=== PATIENT | male | born 1960 | race Caucasian/White ===

== ENCOUNTER 2017-10-30 10:50 | Day surgery (SDC) | payer OTHER, SELFPAY ==
[2017-10-30] VITALS (7 sets, daily range): BP systolic 126–153; BP diastolic 69–88; PULSE 74–90; RESP 12–18; TEMP 36.2–37.3; O2SAT 97–100; BMI 24.3
--- NOTE | 2017-10-30 11:01 | EKG12_ITS ---
Test Reason : PREOP Blood Pressure : / mmHG Vent. Rate : 070 BPM Atrial Rate : 070 BPM P-R Int : 138 ms QRS Dur : 098 ms QT Int : 374 ms P-R-T Axes : 078 039 037 degrees QTc Int : 403 ms Normal sinus rhythm Normal ECG Confirmed by NNAMDI PERES, CRISTIAN ([id number]), online editor GERARDO GODOY ([id number]) on 11/05/2017 2:54:18 PM Referred By: Reagan Bauman Confirmed By:CRISTIAN COTO MD
--- NOTE | 2017-10-30 12:30 | HERN_PTH ---
PATIENT: SHELDON QUINTERO LOC: [facility] [place] U#:[id number] AGE/SX: 57/M ROOM: RE10/30/[address]: Dr. Reagan Bauman MD : 1960 BED: DIS: 10/30/2017 SPEC #: [id number] RECD: 10/31/17 09:23 STATUS: IVÁN JOSSIE #: [id number] IRMA: 10/30/17 12:[address]: Reagan Bauman DEPT: SURGICAL PATHOLOGY RECD BY: Fifi Govea ENTERED: 10/31/17 11:12 SP TYPE: Hernia OTHR DR: No Primary Care Phys Tissues: LIPOMA OF CORD Procedures: Surgery Specimen Level III HEADER OPERATION: Laparoscopic assisted robotic inguinal hernia repair with mesh PRE-OP DIAGNOSIS: Right inguinal hernia TISSUE SUBMITTED: Lipoma of right cord MICROSCOPIC DIAGNOSIS Lipoma of cord: Mature adipose tissue, consistent with lipoma. SJ:lydia 2/5/18 MICROSCOPIC DESCRIPTION Slides are reviewed. GROSS DESCRIPTION Received in fixative is one container labeled with the patient's name and designated lipoma of right cord. The specimen consists of an irregular piece of yellow adipose tissue measuring 5 x 3 x 0.5 cm. Sections reveal yellow adipose cut surfaces without areas of hemorrhage or cystic degeneration. Lead Principal Technical Architect sections are submitted in one cassette. / SJ:rg 10/31/17 TC:1 CPT: 33913
[2017-10-30] MEDS: Cefazolin 2 GM in 0.9% Normal Saline 100 ML IV (12:42)
[2017-10-30] MEDS: Bupivacaine Mpf 0.5% 30 ML VIAL (14:30)
--- NOTE | 2017-10-30 14:39 | PCM.DC.HER ---
Discharge Diet: Light diet - advance as tolerated Discharge Activity: Return to Normal Activity, May Not Drive - for 2-3 days or while taking narcotic pain meds., May Shower - with the bandage in place 1-2 days after surgery. Lifting Restrictions: 20 pounds for 4 weeks. Additional Activity Instructions:: Climbing stairs is fine, walking is encouraged. Sitting in bed may be uncomfortable. Sitting up using your lateral muscles (sitting up sideways) is usually more comfortable. Do not drive, work heavy equipment of sign legal documents for 24 hours. If your hernia repair was an ingunial repair, you may have scrotal swelling, an ice pack and/or athletic support can provide more comfort. Pain medications may cause nausea, you should typically eat light foods as you take your pain medications. Pain medications may also cause constipation. If you have difficulty with this, discuss with your doctor. Call your doctor if your incision/area has: Continuous Slow Oozing, Sudden Increased Bleeding, Increased Pain/ Swelling, Increased Redness, Foul Smelling Discharge Call your doctor if you observe: Fever of 101 or Higher Suture Line Care: Avoid Pulling/Pushing, Avoid Pinching/Bending Change Dressing in (Days):: 2 - Leave steri-strips for 1 week. May protect with a guaze bandaid. Cleanse incision/area with: Keep Dressing Clean & Dry Allergies/Adverse Reactions: Allergies No Known Allergies Allergy (Verified 10/29/17 10:21) Medications to take at Discharge multivitamin capsule 1 cap PO QDAY 10/16/17 Oxycodone HCl/Acetaminophen [Percocet 5/325] 1 - 2 tablet PO Q4H PRN PRN 7 Days #30 tablet 10/30/17 The following prescriptions were given: Oxycodone HCl/Acetaminophen [Percocet 5/325] 1 - 2 tablet PO Q4H PRN PRN 7 Days #30 tablet PRN Reason: Pain Primary Care Physician: Care Physician,No Primary [Primary Care Provider] - Please Follow Up With: Reagan Bauman MD When: call tomorrow to make 2 week follow up appt [phone]
--- NOTE | 2017-10-30 14:41 | PCM.OPRPT ---
Problem List (1) Right inguinal hernia Status: Acute Report of Operation Date of Procedure: 10/30/17 Pre-Operative Diagnosis: Right inguinal hernia Post-Operative Diagnosis: Same Surgery/Procedure Performed:: Robotic assisted laparoscopic right inguinal hernia repair with mesh Description of Surgical Findings:: Patient actually has bilateral inguinal hernias but I only elected to fix the right side as he is Worker's Comp. and the other side would likely be uncovered. This was discussed prior to surgery with the patient. Specimen's removed: Lipoma of the right cord Description of Procedure: The patient was brought back to the operating room and general anesthesia was induced. A Peña catheter was placed and clear urine was returned. Next the abdomen was prepped and draped in usual sterile fashion. An incision was made superior to the umbilicus and deepened to the fascia. The fascia was elevated and a Veress needle was placed into the abdomen and a drop test was performed and was normal. Next the abdomen was insufflated to 15 mmHg. The Veress needle was then removed and the camera port was placed in the abdomen. The camera was then placed in the abdomen and inspected for any injuries upon entry. Next attention was paid to the inguinal area and there were bilateral inguinal hernias but I elected to only fix the right side as the patient is here with a Worker's Comp. case and I discussed this with the patient before that the other side would likely be uncovered and he would have to return no later date but he is currently asymptomatic on that side. Next two 8 mm trochars were placed in the abdominal sidewalls. Next the robot was docked and the patient was placed in steep Trendelenburg position. Next using electrocautery scissors the peritoneum was incised and dissected downward until the hernia sac was reached. The hernia sac was then circumferentially dissected free. There was a large peritoneal fold entering the hernia which may have been a bladder diverticulum. I was unable to get the distal hernia sac free as it went all the way into the scrotum. I elected to divide the hernia sac and reduced what I could. The patient also had a large lipoma of the right cord which was dissected free and removed from the body. Next the large peritoneal fold and what I had of the inguinal hernia sac was brought into the abdomen and a piece of pro-farm equipment mechanic apprentice mesh was trimmed and placed over the defect and placed into position. Next the peritoneum was reapproximated with a running 3-0V lock suture. The defect where the hernia sac was was also closed with a running 3-0V lock suture. At the end of this the mesh was covered well with peritoneum. Next the robot was undocked and the patient was placed in level position. The lateral ports were removed under direct visualization and there was good hemostasis. Next the air was allowed to leave the body and the camera port was removed. All the incisions were closed with interrupted 4-0 Monocryl sutures, Steri-Strips, and bandages. They were all anesthetized with Marcaine. The Peña was removed at the end of the case and the scrotum was checked to include both testicles. The patient was brought to PACU in stable condition. Grafts/Implants Used: Pro-farm equipment mechanic apprentice mesh - Admit VTE Documentation VTE Mechan Device Prophylaxis: SCD's
== END 2017-10-30 19:27 | disposition home or self-care (01) ==
LOC: SDC 10:51 → AC 10:53
PROVIDERS: Visit Provider Surgery
PROC: (CPT 49650; principal; 2017-10-30 12:10)
DX: K40.20 Bilateral inguinal hernia, without obstruction or gangrene, not specified as recurrent (principal); D17.6 Benign lipomatous neoplasm of spermatic cord; Z87.891 Personal history of nicotine dependence
CPT/HCPCS: 00840; 49650; 88304; 93005; J7120; J2405; J3490

== ENCOUNTER → 2017-11-28 11:46 | Outpatient (CLI) | payer BC, OTHER, SELFPAY ==
[2017-11-28 14:20] LABS: Absolute Lymphocyte Count 1.69 X10^3/ul (0.83-4.51); Absolute Neutrophil Count 5.8 X10^3/uL (2.0-7.7); Basophil# 0.04 X10^3/uL; Basophil% 0.5 % (0-1); Eosinophil# 0.21 X10^3/uL; Eosinophils% 2.5 % (0-5); Hematocrit 43.9 % (40-54); Lymphocyte # 1.69 X10^3/ul (4.0); Lymphocyte % 20.4 % (19-41); Mean Corp Hgb Conc 34.2 g/gl (32-36); Mean Corpuscular Hgb 30.1 pg (27.0-32.0); Mean Platelet Vol. 9.9 fl (6.2-12.0); Monocyte# 0.54 X10^3/uL; Monocyte% 6.5 % (0-10); Neutrophil # 5.78 X10^3/uL (2.7-7.7); Platelet Count 262 K/mm3 (150-450); RBC Distribution Width CV 13.1 % (11.6-14.6); RBC Distribution Width SD 41.8 fl (35.1-43.9); Red Blood Count 4.99 M/mm3 (4.6-6.2); White Blood Count 8.3 K/mm3 (4.4-11.0)
[2017-11-28 14:24] LABS: POSITIVE COUNT NO; POSITIVE DIFFERENTIAL NO; POSITIVE MORPHOLOGY NO
[2017-11-28 14:40] LABS: Anion Gap 6 (5-15); BUN 13 mg/dL (7-18); BUN/Creat Ratio 17.4 RATIO (10-20); Chloride 105 mmol/L (98-107); Cholesterol 162 mg/dL (200); Creatinine, Serum 0.74 mg/dL (0.70-1.30); EST Glomerular Filtration Rate 115 mL/min (>60); Est Glom Filt Rate - Afr Amer 139 mL/min (>60); Glucose 89 mg/dL (74-106); High Density Lipoprotein 65 mg/dL; PSA,Total - Annual Screen 5.21 ng/mL (0.00-4.00); Potassium 4.2 mmol/L (3.5-5.1); Sodium Level 140 mmol/L (136-145); Thyroid Stim Hormone (TSH) 1.43 uIU/mL (0.358-3.74); Triglycerides 63 mg/dL; Very Low Density Lipoprotein 13 mg/dL (5-40)
== END ==
PROVIDERS: Family Provider Family Medicine; PCP Family Medicine; Visit Provider Family Medicine
DX: Z00.00 Encounter for general adult medical examination without abnormal findings (principal)
CPT/HCPCS: 36415; 80048; 80061; 84153; 84443; 85025; G0103

== ENCOUNTER → 2018-03-17 16:13 | Outpatient (CLI) | payer OTHER, BC, SELFPAY ==
[2018-03-17 18:08] LABS: PSA,Total- Diagnostic 4.78 ng/mL (0.0-4.0)
== END ==
PROVIDERS: Family Provider Family Medicine; PCP Family Medicine; Visit Provider Family Medicine
DX: R97.20 Elevated prostate specific antigen [PSA] (principal)
CPT/HCPCS: 36415; 84153

== ENCOUNTER → 2018-08-06 16:27 | Outpatient (CLI) | payer BC, OTHER, SELFPAY ==
[2018-08-06 17:48] LABS: Anion Gap 6 (5-15); BUN 14 mg/dL (7-18); BUN/Creat Ratio 16.4 RATIO (10-20); Calcium,Total 8.8 mg/dL (8.5-10.1); Chloride 103 mmol/L (98-107); Creatinine, Serum 0.86 mg/dL (0.70-1.30); EST Glomerular Filtration Rate 98 mL/min (>60); Est Glom Filt Rate - Afr Amer 118 mL/min (>60); Glucose 87 mg/dL (74-106); PSA,Total- Diagnostic 5.89 ng/mL (0.0-4.0); Potassium 4.2 mmol/L (3.5-5.1); Sodium Level 139 mmol/L (136-145)
== END ==
PROVIDERS: Family Provider Family Medicine; PCP Family Medicine; Visit Provider Family Medicine
DX: I10 Essential (primary) hypertension (principal); R97.20 Elevated prostate specific antigen [PSA]
CPT/HCPCS: 36415; 80048; 84153

== ENCOUNTER → 2018-11-10 16:37 | Outpatient (CLI) | payer OTHER, SELFPAY ==
[2017-11-12 09:35] VITALS: BMI 24.3
[2018-11-10 19:31] LABS: PSA,Total- Diagnostic 5.13 ng/mL (0.0-4.0)
== END ==
PROVIDERS: Family Provider Family Medicine; PCP Family Medicine; Visit Provider Family Medicine
DX: Z12.5 Encounter for screening for malignant neoplasm of prostate (principal)
CPT/HCPCS: 36415; 84153

== ENCOUNTER → 2019-04-22 | Outpatient (CLI) | payer OTHER, SELFPAY ==
[2017-11-12 09:35] VITALS: BMI 24.3
--- NOTE | 2019-04-22 | IMM_PTH ---
PATIENT: SHELDON QUINTERO LOC: [facility] U#:[id number] AGE/SX: 58/M ROOM: RE04/22/[address]: Dr. Tim Culp MD : 1960 BED: DIS: 04/22/2019 SPEC #: [id number] RECD: 04/26/19 12:21 STATUS: IVÁN REQ #: [id number] IRMA: 04/22/19 00:[address]: Tim Cupl DEPT: IMMUNOHISTOCHEMISTRY RECD BY: Connie Egan ENTERED: 04/26/19 12:23 SP TYPE: IMMUNO OTHR DR: Dr. Miles Kyle MD Tissues: B - PROSTATE RIGHT C - PROSTATE RIGHT D - PROSTATE LEFT F - PROSTATE LEFT Procedures: 34BE12 (add) P40 (add) 34BE12 (initial) PHYSICIAN & INSTITUTION [place] [address] SPECIMEN INFORMATION: Tissue Source: B - Right prostate mid, C - Right prostate base, D - Left prostate apex, F - Left prostate base Clinical Info: Elevated PSA Specimen Number: [id number] B, C, D & F CPT code: 75348, 47600 x7 METHODOLOGY: Deparaffinized sections of prefer/formalin-fixed tissue or PAP/DQ stained slides are incubated with monoclonal/polyclonal antibodies/oligonucleotide probes. Localization is made via biotin free immunoperoxidase method. Appropriate controls are performed and reacted as expected. Results on target cell population are indicated in the following table: RESULTS: ANTIBODY / CLONE RESULT Block B P40 (BC28) positive 34BE12 (34BE12) positive Block C P40 (BC28) negative 34BE12 (34BE12) negative Block D P40 (BC28) positive 34BE12 (34BE12) positive Block F P40 (BC28) positive 34BE12 (34BE12) positive These tests were developed and their performance characteristics determined by [facility]. They may not have been cleared or approved by the U.S. Food and Drug Administration. The FDA has determined that such clearance or approval is not necessary. INTERPRETATION: B. Right prostate, mid, core biopsy: Negative for adenocarcinoma. C. Right prostate, base, core biopsy: Focal atypical small acinar proliferation (BRODERICK) D. Left prostate, apex, core biopsy: Negative for adenocarcinoma. F. Left prostate, base, core biopsy: Negative for adenocarcinoma. This case has been reviewed in consultation with Dr. Fermin who concurs with the above diagnosis. SJ:rg 7/29/19
--- NOTE | 2019-04-22 08:00 | PROSBIL_PTH ---
PATIENT: SHELDON QUINTERO LOC: [facility] U#:[id number] AGE/SX: 58/M ROOM: RE04/22/[address]: Dr. Tim Culp MD : 1960 BED: DIS: 04/22/2019 SPEC #: [id number] RECD: 04/22/19 16:00 STATUS: IVÁN JOSSIE #: [id number] IRMA: 04/22/19 08:[address]: Tim Culp DEPT: SURGICAL PATHOLOGY RECD BY: Fifi Govea ENTERED: 04/23/19 09:05 SP TYPE: PROST BX KAREN DR: Dr. Miles Kyle MD Tissues: A - PROSTATE RIGHT B - PROSTATE RIGHT C - PROSTATE RIGHT D - PROSTATE LEFT E - PROSTATE LEFT F - PROSTATE LEFT Procedures: PROSTATE BX HEADER OPERATION: Prostate biopsy PRE-OP DIAGNOSIS: Elevated PSA TISSUE SUBMITTED: A - Right apex, B - Right mid, C - Right base, D - Left apex, E - Left mid, F - Left base MICROSCOPIC DIAGNOSIS A. Right prostate, apex, core biopsy: Prostatic tissue, negative for malignancy. B. Right prostate, mid, core biopsy: Focal high-grade prostatic intraepithelial neoplasia (HGPIN). Focal atrophy. See comment. C. Right prostate, base, core biopsy: Focal atypical small acinar proliferation (BRODERICK). Focal atrophy. See comment. D. Left prostate, apex, core biopsy: Prostatic tissue, negative for malignancy. Focal atrophy and mild chronic inflammation. See comment. E. Left prostate, mid, core biopsy: Prostatic tissue, negative for malignancy. Focal atrophy and mild chronic inflammation. F. Left prostate, base, core biopsy: Prostatic tissue, negative for malignancy. Focal atrophy and mild chronic inflammation. See comment. SJ:rg 04/26/19 COMMENT B, C, D & F - Immunohistochemistry ([id number]) supports the above diagnosis. This case has been reviewed in consultation with Dr. Fermin who concurs with the above diagnosis. MICROSCOPIC DESCRIPTION Slides are reviewed. GROSS DESCRIPTION A - Received is one container designated prostate, right apex. The specimen consists of two elongated fragments of light cottrell-white soft tissue each measuring 1.5 cm in length and 0.1 cm in diameter. The specimen is totally submitted in one cassette. B - Received is one container designated prostate, right mid. The specimen consists of two elongated fragments of light cottrell-white soft tissue each measuring 1.5 cm in length and 0.1 cm in diameter. The specimen is totally submitted in one cassette. C - Received is one container designated prostate, right base. The specimen consists of two elongated fragments of light cottrell-white soft tissue measuring 1.5 and 1.6 cm in length and 0.1 cm in diameter. The specimen is totally submitted in one cassette. D - Received is one container designated prostate, left apex. The specimen consists of two elongated fragments of light cottrell-white soft tissue measuring 0.7 and 1.5 cm in length and 0.1 cm in diameter. The specimen is totally submitted in one cassette. E - Received is one container designated prostate, left mid. The specimen consists of two elongated fragments of light cottrell-white soft tissue each measuring 1 cm in length and 0.1 cm in diameter. The specimen is totally submitted in one cassette. F - Received is one container designated prostate, left base. The specimen consists of two elongated fragments of light cottrell-white soft tissue measuring 1.4 and 1.8 cm in length and 0.1 cm in diameter. The specimen is totally submitted in one cassette. / SJ:rg 04/23/19 TC:4 CPT: 03124 x6
== END | disposition home or self-care (01) ==
LOC: LABSPEC 16:49
PROVIDERS: Family Provider Family Medicine; PCP Family Medicine; Referring Provider Urology; Visit Provider Urology
DX: R97.20 Elevated prostate specific antigen [PSA] (principal)
CPT/HCPCS: 88305; 88341; 88342; G0416

== ENCOUNTER → 2019-10-14 17:02 | Outpatient (CLI) | payer OTHER, SELFPAY ==
[2017-11-12 09:35] VITALS: BMI 24.3
--- NOTE | 2019-10-14 17:06 | RAD_ITS ---
STUDY: X-RAY - LUMBAR SPINE REASON FOR EXAM: Male, 58 years old. back pain, injury, jammed back carrying a heavy object 3 months ago TECHNIQUE: 5 view(s) of the lumbar spine were obtained. COMPARISON: None FINDINGS: Normal lumbar lordosis. There is no substantial scoliosis. There is a normal alignment of the vertebrae. There is diffuse demineralization with multi-level endplate spondylosis. Normal disc space heights. The soft tissue structures are unremarkable. RAD/L/S Spine Min 4 Views IMPRESSION: Diffuse demineralization and endplate degenerative change with relatively preserved disc space and alignment throughout. If high clinical suspicion of osseous injury further evaluation with MRI may be obtained to exclude mild microfracture given demineralization. Electronically Signed: William Morales DO at 23:13 EST , Service support ,
== END ==
PROVIDERS: PCP Family Medicine; Referring Provider Family Medicine; Visit Provider Family Medicine
DX: M54.9 Dorsalgia, unspecified (principal)
CPT/HCPCS: 72110

== ENCOUNTER → 2019-11-15 16:27 | Outpatient (CLI) | payer OTHER, SELFPAY ==
[2017-11-12 09:35] VITALS: BMI 24.3
[2019-11-15 18:11] LABS: Anion Gap 5 (5-15); BUN 12 mg/dL (7-18); BUN/Creat Ratio 15.9 RATIO (10-20); Calcium,Total 9.4 mg/dL (8.5-10.1); Chloride 106 mmol/L (98-107); Cholesterol 166 mg/dL (200); Creatinine, Serum 0.76 mg/dL (0.70-1.30); EST Glomerular Filtration Rate 112 mL/min (>60); Est Glom Filt Rate - Afr Amer 135 mL/min (>60); Glucose 79 mg/dL (74-106); High Density Lipoprotein 69 mg/dL; PSA,Total- Diagnostic 5.01 ng/mL (0.0-4.0); Potassium 3.9 mmol/L (3.5-5.1); Sodium Level 140 mmol/L (136-145); Triglycerides 80 mg/dL; Very Low Density Lipoprotein 16 mg/dL (5-40)
== END ==
PROVIDERS: PCP Family Medicine; Referring Provider Family Medicine; Visit Provider Family Medicine
DX: I10 Essential (primary) hypertension (principal); C61 Malignant neoplasm of prostate
CPT/HCPCS: 36415; 80048; 80061; 84153

== ENCOUNTER → 2020-11-15 16:08 | Outpatient (CLI) | payer OTHER, SELFPAY ==
[2017-11-12 09:35] VITALS: BMI 24.3
[2020-11-15 18:47] LABS: PSA,Total- Diagnostic 7.19 ng/mL (0.0-4.0)
== END ==
PROVIDERS: PCP Family Medicine; Visit Provider Urology
DX: R97.20 Elevated prostate specific antigen [PSA] (principal)
CPT/HCPCS: 36415; 84153

== ENCOUNTER → 2021-02-03 07:06 | Outpatient (CLI) | payer OTHER, SELFPAY ==
[2017-11-12 09:35] VITALS: BMI 24.3
[2021-02-03 09:36] LABS: Anion Gap 4 (5-15); BUN 14 mg/dL (7-18); BUN/Creat Ratio 17.3 RATIO (10-20); Calcium,Total 8.9 mg/dL (8.5-10.1); Chloride 105 mmol/L (98-107); Cholesterol 161 mg/dL (200); Creatinine, Serum 0.81 mg/dL (0.70-1.30); EST Glomerular Filtration Rate 103 mL/min (>60); Est Glom Filt Rate - Afr Amer 125 mL/min (>60); Glucose 86 mg/dL (74-106); High Density Lipoprotein 77 mg/dL; Potassium 4.1 mmol/L (3.5-5.1); Sodium Level 139 mmol/L (136-145); Triglycerides 57 mg/dL; Very Low Density Lipoprotein 11 mg/dL (5-40)
[2021-02-05 08:38] LABS: Vitamin D,25 Hydroxy 32.1 ng/mL
== END ==
PROVIDERS: PCP Family Medicine; Referring Provider Family Medicine; Visit Provider Family Medicine
DX: Z00.00 Encounter for general adult medical examination without abnormal findings (principal)
CPT/HCPCS: 36415; 80048; 80061; 82306; 84403

== ENCOUNTER 2021-11-17 09:10 | Outpatient (CLI) | payer OTHER, SELFPAY ==
[2021-11-17 10:24] LABS: Anion Gap 4 (5-15); BUN 11 mg/dL (7-18); BUN/Creat Ratio 13.7 RATIO (10-20); Calcium,Total 9.2 mg/dL (8.5-10.1); Chloride 104 mmol/L (98-107); Cholesterol 177 mg/dL (200); EST Glomerular Filtration Rate 104 mL/min (>60); Est Glom Filt Rate - Afr Amer 125 mL/min (>60); Glucose 92 mg/dL (74-106); High Density Lipoprotein 81 mg/dL; Potassium 4.4 mmol/L (3.5-5.1); Sodium Level 138 mmol/L (136-145); Triglycerides 44 mg/dL; Very Low Density Lipoprotein 9 mg/dL (5-40)
[2021-11-19 09:36] LABS: Vitamin D,25 Hydroxy 35.2 ng/mL
== END 2021-11-17 23:59 | disposition home or self-care (01) ==
LOC: LAB 09:11
PROVIDERS: PCP Family Medicine; Visit Provider Family Medicine
DX: Z00.00 Encounter for general adult medical examination without abnormal findings (principal)
CPT/HCPCS: 36415; 80048; 80061; 82306

== ENCOUNTER 2021-12-10 11:30 | Outpatient (CLI) | payer OTHER, SELFPAY ==
[2021-12-10 13:22] LABS: PSA,Total- Diagnostic 6.01 ng/mL (0.0-4.0)
== END 2021-12-10 23:59 | disposition home or self-care (01) ==
LOC: LAB 11:31
PROVIDERS: PCP Family Medicine; Referring Provider Urology; Visit Provider Urology
DX: R97.20 Elevated prostate specific antigen [PSA] (principal)
CPT/HCPCS: 36415; 84153

== ENCOUNTER 2021-12-25 08:24 | Day surgery (SDC) | payer OTHER, SELFPAY ==
[2021-12-25] MEDS: Lactated Ringers 1,000 ML 15 ML IV (08:48)
[2021-12-25 08:50] VITALS: BP 143/77; PULSE 60; RESP 16; TEMP 37.3; O2SAT 99; BMI 24.0
--- NOTE | 2021-12-25 09:06 | HP.PCM_ITS ---
HPI - General HPI Narrative SHELDON QUINTERO, is a 61 M who presents for screening colonoscopy. Patient reports his last colonoscopy was at 10 years ago. Patient does not have any history of blood in his stool or abdominal pain. He does have a family history of colon cancer in his sister who of colon cancer. [facility] Medical History (Updated 12/25/21 @ 09:[address] Reagan Bauman MD) Alcohol use Back pain Heartburn History of stress test Inguinal hernia Marijuana use Non-smoker Prostate disease Home Medications multivitamin 1 cap PO QDAY 10/16/17 [History Last Taken Unknown] calcium 600 mg PO DAILY 12/21/21 [History Last Taken Unknown] tadalafil [Cialis] 20 mg PO DAILY PRN 12/21/21 [History Last Taken 12/22/21] Allergy/AdvReac Type Severity Reaction Status Date / Time No Known Allergies Allergy Verified 12/25/21 08:35 Family History Father Heart disease Sister Colon cancer Surgical History S/P colonoscopy S/P right inguinal hernia repair (~10/30/17) S/P vasectomy Social History (Updated 03/27/18 @ 15:[address] Reagan Bauman MD) Smoking Status: Never smoker Past Medical/Surgical History Planned Operation Planned Operative Procedure/s: CSCOPE OA S.O.S: No Previous Hospitalizations/Surgeries HX Hospitalizations: No HX of Surgeries: VASECTOMY COLONOSCOPY WISDOM TEETH Any Problems With Anesthesia: No You/Your Family Experience Fever (Hyperthermia) With Anes: No Cholinesterase deficiency: No Cardiovascular Hx Chest Pain within Last 2 months: No Hx of Irregular Heartbeat and/or Afib: No Hx Heart Attack: No Hx Congestive Heart Failure: No Hx Rheumatic Fever: No Hx Hypertension: No Hx Internal Defibrillator: No Hx Pacemaker: No Hx Cardiac Catheterization: No Hx Cardiac Surgery/Stents/Etc.: No Hx Stress Test: Yes (OVER 20 YRS AGO) Hx Pain in Legs when Walking/Leg Cramps: No Respiratory Chronic Cough: No HX of Shortness of Breath: No Hoarseness: No Hx Chronic Obstructive Pulmonary Disease (COPD): No Hx Asthma: No Hx Emphysema: No Hx Sleep Apnea: No Hx Respiratory Tract Infection/Cold (presently): No Do You Snore Loudly (louder than talking or can be heard): No Do You Often Feel Tired/ Fatigued/ Sleepy Dring Daytime?: No Has Anyone Observed You Stop Breathing During Sleep?: No Result (for STOP score): Negative Hx Smoking: No Smoking Status: Never smoker Gastrointestinal Hx Gastroesophageal Reflux: No (OCCAS HEARTBURN) Hx Gastrointestinal Disorders: No Hx Gastrointestinal Bleed: No Hx Ulcer: No Hx Hiatal Hernia: No Difficulty Chewing/Swallowing: No Special diet followed at home: No Hx Unplanned Weight Loss of 20#: Yes (LOST 20 POUNDS, FAMILY ) HX Unplanned Weight Gain of 20#: No Neurological Hx Seizures: No HX Syncope/Blackout Spells/Unconsciousness: No Hx Transient Ischemic Attacks (TIA): No Hx Multiple Sclerosis: No Hx Parkinson's Disease: No Hx Head/Neck Injury: No Hx Headaches: No Hx Back Injury/Pain: Yes (OCAS LOW BACK PAIN) Recent Onset of Speech Difficulty: No Restless Legs: No Does patient have nerve stimulator: No Blood Disorder Hx Leukemia: No Bleeding Tendencies: No Hx Deep Vein Thrombosis: No Hx High Cholesterol: No Blood Transmitted Disease: No Hx Hepatitis: No Hx Cirrhosis: No Hx Anemia: No Hx Blood Disorders: No Reproduction : No Genitourinary Hx Renal Disease: No Musculoskeletal Hx Arthritis: No Hx Rheumatoid Arthritis: No Hx Gout: No Recent Onset of an Orthopedic Problem: No Endocrine Hx Diabetes: No Thyroid Disease: No Hx Steroid Therapy: No Psycho/Social Hx Substance Use: No Hx Alcohol Use: Yes (2- BEERS/DAY) Hx Anxiety: No Hx Depression: No Mental Illness: No Hx Dementia: No Miscellaneous Hx Cancer: No Recent Exposure to Contagious Disease: No Hx of C-Diff: No Any Loose Teeth: No Allergies No Known Allergies Allergy (Verified 12/25/21 08:35) Discharge Is Pt Admitted From a Detention, or a [facility]: No After D/C, Where Do you Plan to Go: Return Home From the PAT History Number of Risk Factors: 2 Vital Signs Vital Signs Vital Signs: 12/25/21 08:50 Temperature 99.1 F Temperature Source Temporal Pulse Rate 60 Respiratory Rate 16 Respiratory Pattern Normal Blood Pressure 143/77 H Blood Pressure Mean 99 Blood Pressure Source Monitor Blood Pressure Position Semi-Fowlers Blood Pressure Location Left Arm Pulse Ox 99 Oxygen Delivery Method Room Air Weight Weight: 163 lb 2.273 oz Body Mass Index (BMI) 24.0 Physical Exam Const alert and oriented x3 Resp normal respiratory effort and normal air movement Cardio regular rate and regular rhythm GI soft to palpation, non-tender and non-distended Assessment & Plan Assessment/Plan (1) Family history of colon cancer: (2) Encounter for screening for malignant neoplasm of colon: PLAN: Patient is here for screening colonoscopy. He does have a history of colon cancer in his sister so even if there are no polyps I would recommend repeat in 5 years. I explained endoscopy in detail to the patient. I explained the risks including but not limited to stroke or heart attack with anesthesia, perforation of the GI tract, bleeding, infection. I explained that any of these could necessitate further emergency surgery. The patient understands and all questions were answered sufficiently. The patient wishes to proceed with procedure. Reagan Bauman MD Pager: [facility] [address] [place] [address] [address] [place] [address] Office: Surgery Risks - Colonoscopy Risks Include but are not Limited To: Risks include but are not limited to: Bleeding, perforation requiring further surgery, inability to complete colonoscopy requiring barium enema.
--- NOTE | 2021-12-25 09:33 | OP.COLON_ITS ---
Patient Name: Franco Farris Procedure Date: 12/25/2021 9:12 AM Date of : 1960 Age: 61 Procedure: Colonoscopy Indications: Colon cancer screening in patient at increased risk: Colorectal cancer in sister Providers: Reagan Bauman MD Medicines: Monitored Anesthesia Care Patient Profile: This is a 61 year old male. Refer to note in patient chart for documentation of history and physical. Last Colonoscopy: 10 years ago. Complications: No immediate complications. Procedure: Pre-Anesthesia Assessment: - Prior to the procedure, a History and Physical was performed, and patient medications and allergies were reviewed. The patient's tolerance of previous anesthesia was also reviewed. The risks and benefits of the procedure and the sedation options and risks were discussed with the patient. All questions were answered, and informed consent was obtained. Prior Anticoagulants: The patient has taken no previous anticoagulant or antiplatelet agents. After reviewing the risks and benefits, the patient was deemed in satisfactory condition to undergo the procedure. After I obtained informed consent, the scope was passed under direct vision. Throughout the procedure, the patient's blood pressure, pulse, and oxygen saturations were monitored continuously. The Colonoscope was introduced through the anus and advanced to the cecum, identified by appendiceal orifice and ileocecal valve. The colonoscopy was performed without difficulty. The patient tolerated the procedure well. The quality of the bowel preparation was good. Scope In: 9:19:43 AM Scope Withdrawal Time 0 hours 6 minutes 4 seconds Scope Out: 9:31:43 AM Total Procedure Duration Time 0 hours 12 minutes 0 seconds Findings: The entire examined colon appeared normal on direct and retroflexion views. Impression: - The entire examined colon is normal on direct and retroflexion views. - No specimens collected. Recommendation: - Discharge patient to home. - Resume previous diet. - Continue present medications. - Repeat colonoscopy in 5 years for screening purposes. Procedure Code(s): --- Professional --- 13755, Colonoscopy, flexible; diagnostic, including collection of specimen(s) by brushing or washing, when performed (separate procedure) Diagnosis Code(s): --- Professional --- Z80.0, Family history of malignant neoplasm of digestive organs CPT copyright 2017 [employer]. All rights reserved. The codes documented in this report are preliminary and upon church supervisor review may be revised to meet current compliance requirements. Reagan Bauman MD 12/25/2021 9:32:59 AM This report has been signed electronically. Number of Addenda: 0 Note Initiated On: 12/25/2021 9:12 AM
[2021-12-25 09:34] VITALS: BP 113/83; BP 143/77; PULSE 61; RESP 16; TEMP 37.4; O2SAT 100
--- NOTE | 2021-12-25 09:34 | OP.CCLET_ITS ---
12/25/2021 Miles Kyle MD [address] [place] [address] Re : Colonoscopy procedure for Franco Kaleigh Dear Dr. Kyle This procedure was performed on Saturday, December 25, 2021. My impressions and recommendations are as follows: Impressions : - The entire examined colon is normal on direct and retroflexion views. - No specimens collected. Recommendations : - Discharge patient to home. - Resume previous diet. - Continue present medications. - Repeat colonoscopy in 5 years for screening purposes. My findings are described in the full procedure note, which is enclosed. If I can be of further assistance, please feel free to contact me at Doctor phone number(s): , Work: . Sincerely, Reagan Bauman MD 12/25/2021 9:32:59 AM This report has been signed electronically.
[2021-12-25 09:40] VITALS: BP 110/70; BP 143/77; PULSE 63; RESP 16; O2SAT 100
[2021-12-25 09:45] VITALS: BP 103/69; BP 143/77; PULSE 63; RESP 16; O2SAT 100
[2021-12-25 09:51] VITALS: BP 110/73; BP 143/77; PULSE 72; RESP 16; TEMP 36.9; O2SAT 100
[2021-12-25 10:01] VITALS: BP 143/77
== END 2021-12-25 23:59 | disposition home or self-care (01) ==
LOC: EN 08:24 → AC 08:25
PROVIDERS: PCP Family Medicine; Referring Provider Family Medicine; Visit Provider Surgery
PROC: 0DJD8ZZ Inspection of Lower Intestinal Tract, Via Natural or Artificial Opening Endoscopic (ICD-10-PCS; CPT 45378; principal; 2021-12-25 09:40)
DX: Z12.11 Encounter for screening for malignant neoplasm of colon (principal); Z80.0 Family history of malignant neoplasm of digestive organs
CPT/HCPCS: 45378; J7120

== ENCOUNTER → 2022-12-12 | Outpatient (CLI) | payer OTHER, SELFPAY ==
[2022-12-12 11:13] LABS: PSA,Total- Diagnostic 8.25 ng/mL (0.0-4.0)
== END | disposition home or self-care (01) ==
LOC: LAB 09:52
PROVIDERS: PCP Family Medicine; Referring Provider Urology; Visit Provider Urology
DX: R97.20 Elevated prostate specific antigen [PSA] (principal)
CPT/HCPCS: 36415; 84153

== ENCOUNTER → 2022-12-20 | Outpatient (CLI) | payer OTHER, SELFPAY ==
--- NOTE | 2022-12-20 07:19 | MRI_ITS ---
STUDY: MR PELVIS WITH AND WITHOUT CONTRAST (PROSTATE) REASON FOR EXAM: Male, 62 years old. Elevated PSA TECHNIQUE: Standardized multiparametric prostate MRI with T1, T2, DWI/ADC sequences were obtained in 3 orthogonal planes, and dynamic contrast enhancement sequences. 15 ml of clariscan contrast material was administered intravenously for the contrast portion of the examination. COMPARISON: None. FINDINGS: The prostate volume measures 67 mm3. The contours of the prostate gland are lobulated. There is mass effect on the bladder base. The transition zone is heterogenous. PI-RADS DWI score 2 - Hypointense within a BPH nodule on ADC. PI-RADS T2W score 2 - A mostly encapsulated nodule OR a homogeneous circumscribed nodule without encapsulation (atypical nodule) or a homogeneous mildly hypointense area between nodules.. Contrast enhancement no early or contemporaneous enhancement; or diffuse multifocal enhancement NOT corresponding to a focal finding on T2W and/or DWI or focal ehancement responding to a lesion demonstrating features of BPH onT2WI (including features of extruded BPH in the PZ). The peripheral zone is heterogenous. PI-RADS DWI score 1 - No abnormality (normal) on ADC or high b-value DWI. PI-RADS T2W score 1 - Uniformaly hyperintense (normal). Contrast enhancement no early or contemporaneous enhancement; or diffuse multifocal enhancement NOT corresponding to a focal finding on T2W and/or DWI or focal enhancement responding to a lesion demonstrating features of BPH onT2WI (including features of extruded BPH in the PZ). The seminal vesicles demonstrate normal margins and T2 signal pattern. No mass lesion or invasion depicted. The rectoprostatic angles are normal. Urinary bladder is normal without wall thickening. The vascular structures of the are normal. The visualized hollow viscus structures are normal. No bone marrow edema or mass lesion depicted. MRI/Pelvis W/WO Contrast IMPRESSION: 1. PIRADS v2.1 2019 -- 2 - Low (clinically significant cancer is unlikely). Electronically Signed: Milton Varghese (Brooks), at 12:29 EDT ,
[2022-12-20 08:00] LABS: CREATININE FINGERSTICK < 0.9 mg/dL (0.70-1.30); EGFR FINGERSTICK > 60.0000 mL/min (>60)
== END | disposition home or self-care (01) ==
PROVIDERS: PCP Family Medicine; Referring Provider Urology; Visit Provider Urology
DX: R97.20 Elevated prostate specific antigen [PSA] (principal)
CPT/HCPCS: 72197; A9575

== ENCOUNTER → 2023-01-16 | Outpatient (CLI) | payer OTHER, SELFPAY ==
[2023-01-16 10:21] LABS: Anion Gap 1 (5-15); BUN 17 mg/dL (7-18); BUN/Creat Ratio 18.4 RATIO (10-20); Calcium,Total 9.4 mg/dL (8.5-10.1); Chloride 105 mmol/L (98-107); Cholesterol 197 mg/dL (200); Creatinine, Serum 0.92 mg/dL (0.70-1.30); EST Glomerular Filtration Rate 88 mL/min (>60); Est Glom Filt Rate - Afr Amer 106 mL/min (>60); Glucose 92 mg/dL (74-106); High Density Lipoprotein 67 mg/dL; Potassium 4.4 mmol/L (3.5-5.1); Sodium Level 136 mmol/L (136-145); Triglycerides 54 mg/dL; Very Low Density Lipoprotein 11 mg/dL (5-40)
[2023-01-16 10:30] LABS: Vitamin D,25 Hydroxy 46.3 ng/mL
== END | disposition home or self-care (01) ==
LOC: MTLAB 08:50
PROVIDERS: PCP Family Medicine; Referring Provider Family Medicine; Visit Provider Family Medicine
DX: R03.0 Elevated blood-pressure reading, without diagnosis of hypertension (principal)
CPT/HCPCS: 36415; 80048; 80061; 82306

== ENCOUNTER → 2024-01-12 | Outpatient (CLI) | payer OTHER, SELFPAY | END | disposition home or self-care (01) | PROVIDERS: PCP Family Medicine; Referring Provider Urology; Visit Provider Urology | DX: R97.20 Elevated prostate specific antigen [PSA] (principal) | CPT/HCPCS: 36415; 84153 ==

== ENCOUNTER → 2024-01-21 | Outpatient (CLI) | payer OTHER, SELFPAY ==
[2024-01-21 10:40] LABS: Anion Gap 4 (5-15); BUN 13 mg/dL (7-18); BUN/Creat Ratio 13.7 RATIO (10-20); Chloride 106 mmol/L (98-107); Cholesterol 179 mg/dL (200); Creatinine, Serum 0.95 mg/dL (0.70-1.30); EST Glomerular Filtration Rate 85 mL/min (>60); Est Glom Filt Rate - Afr Amer 103 mL/min (>60); Glucose 97 mg/dL (74-106); High Density Lipoprotein 66 mg/dL; Potassium 4.3 mmol/L (3.5-5.1); Sodium Level 139 mmol/L (136-145); Triglycerides 72 mg/dL; Very Low Density Lipoprotein 14 mg/dL (5-40)
== END | disposition home or self-care (01) ==
LOC: MTLAB 08:20
PROVIDERS: PCP Family Medicine; Referring Provider Family Medicine; Visit Provider Family Medicine
DX: Z00.00 Encounter for general adult medical examination without abnormal findings (principal)
CPT/HCPCS: 36415; 80048; 80061

== ENCOUNTER → 2025-01-18 | Outpatient (CLI) | payer MEDICARE, SELFPAY ==
[2025-01-18 11:11] LABS: PSA,Total - Annual Screen 6.09 ng/mL (0.02-4.00)
== END | disposition home or self-care (01) ==
PROVIDERS: PCP Family Medicine; Referring Provider Nurse Practitioner; Visit Provider Nurse Practitioner
DX: Z12.5 Encounter for screening for malignant neoplasm of prostate (principal)
CPT/HCPCS: 36415; 84153; G0103

== ENCOUNTER → 2025-01-25 | Outpatient (CLI) | payer MEDICARE, SELFPAY ==
[2025-01-25 10:44] LABS: Anion Gap 10 (5-15); BUN 11 mg/dL (4-19); BUN/Creat Ratio 12.7 RATIO (10-20); Calcium,Total 9.5 mg/dL (7.6-11.0); Carbon Dioxide 25.9 mmol/L (21.0-32.0); Chloride 102 mmol/L (98-108); Cholesterol 199 mg/dL (<=200); Creatinine, Serum 0.87 mg/dL (0.70-1.20); EST Glomerular Filtration Rate 96 (>60); Glucose 89 mg/dL (70-99); High Density Lipoprotein 60 mg/dL; Low Density Lipoprotein Calc. 127 mg/dL; Potassium 4.1 mmol/L (3.3-5.1); Sodium Level 138 mmol/L (133-145); Triglycerides 61 mg/dL; Very Low Density Lipoprotein 12 mg/dL (5-40); cholesterol:hdl ratio screen 3.32
== END | disposition home or self-care (01) ==
PROVIDERS: PCP Family Medicine; Referring Provider Family Medicine; Visit Provider Family Medicine
DX: I10 Essential (primary) hypertension (principal)
CPT/HCPCS: 36415; 80048; 80061

== ENCOUNTER → 2025-01-27 | Outpatient (CLI) | payer MEDICARE, SELFPAY ==
--- NOTE | 2025-01-27 09:39 | BD_ITS ---
PROCEDURE: DEXA examination REASON FOR EXAM: 64-year-old male. Osteoporosis. TECHNIQUE: DEXA examination lumbar spine and both hips. COMPARISON: None. FINDINGS: Lumbar spine: 0.790 g/cm2, T-score -2.7. Z-score measures 2.0. Levels: L1 through L4 Left femoral neck: 0.615 g/cm2, T-score -2.3. Z-score measures -1.3. Left total hip: 0.790 g/cm2, T-score -1.6. Z-score measures -1.1. Right femoral neck: 0.588 g/cm2, T-score -2.5. Z-score measures -1.5. Right total hip: 0.802 g/cm2, T-score -1.5. Z-score measures -1.0 The World Health Organization has defined the following categories based on bone density: Normal bone density: T-score equal to or greater than -1.0 Osteopenia: T-score between -1.0 and -2.5 Osteoporosis: T-score equal to or less than -2.5 FRAX (or Comparable) Fracture Risk Assessment: 10 Year Probability of Fracture: Major Osteoporotic Fracture: 9.4% Hip Fracture: 2.6% (Note: FRAX is not to be reported in setting of normal range bone density, osteoporosis on DEXA, known history of osteoporosis, prior osteoporotic hip or vertebral fracture, or for any patient undergoing pharmacological treatment for bone loss.) The National Osteoporosis Foundation (NOF) recommends pharmacological treatment for patients with a FRAX 10-year risk of 3% or higher for a hip fracture, or 20% or higher for a major osteoporotic fracture, to prevent osteoporosis and reduce fracture risk. The patient does meet the pharmacological treatment recommendations for prevention of osteoporosis. BD/Dexa Bone Density Study IMPRESSION: OSTEOPOROSIS. Recommend follow-up as clinically warranted. OSTEOPOROSIS. Reading Location: [id number]
== END | disposition home or self-care (01) ==
LOC: OPBD 09:37
PROVIDERS: PCP Family Medicine; Referring Provider Family Medicine; Visit Provider Family Medicine
DX: M81.0 Age-related osteoporosis without current pathological fracture (principal)
CPT/HCPCS: 77080